=== PATIENT | female | born 1980 | race Caucasian/White ===

== ENCOUNTER 2018-04-09 20:41 | Observation (INO) | payer OTHER ==
[~2018-04-09 20:41] MED LIST: ISOVUE-370 76%-LOCM 1 ML ONE
--- NOTE | 2018-04-09 21:38 | RAD ---
PORTABLE CHEST: 04/09/18 HISTORY: Chest pain. The lung joseph appear clear. No infiltrate. Heart and mediastinum unremarkable. Postop sternotomy ch anges. Radiopaque suture overlies the right upper lung. IMPRESSION: No evidence of acute lung process. POS: [facility]
[2018-04-09 21:46] LABS: #Basophils 0.1 thou/uL (0.0-0.2); #Eosinphils 0.1 thou/uL (0.0-0.7); #Lymphocytes 1.8 thou/uL (1.20-3.40); #Monocytes 0.9 thou/uL (0.11-0.59); #Neutrophils 6.3 thou/uL (1.40-6.50); %Basophils 0.6 % (0.0-1.0); %Eosinophils 1.6 % (0.0-10.0); %Lymphocytes 19.8 % (21.0-51.0); %Monocytes 9.4 % (0.0-10.0); %Neutrophils 68.6 % (42.0-75.0); Hemoglobin 13.6 g/dL (12.0-16.0); Mean Corpuscular HGB CONC 34.8 g/dL (32.0-36.0); Mean Corpuscular Hemoglobin 28.6 pg (27.0-31.0); Mean Corpuscular Volume 82.1 fL (78.0-98.0); Mean Platelet Volume 6.7 fL (7.4-10.4); Platelet Count 301 thou/uL (130-400); RBC Distribution Width 14.2 % (11.5-14.5); Red Blood Cell (RBC) Count 4.74 mill/uL (4.20-5.40); White Blood Cell (WBC) Count 9.2 thou/uL (4.8-10.8)
[2018-04-09 21:51] LABS: Bilirubin Negative (Negative); Blood, Urine Negative (Negative); Clarity CLEAR (Clear); Glucose, Urine (Dipstick) Negative (Negative); Leukocyte Trace (Negative); Nitrite Negative (Negative); Protein, Urine (Dipstick) Negative (Neg-Trace); Specific Gravity, Urine 1.011 (1.002-1.036); Urobilinogen 0.2 mg/dL (0.2-1.0); pH, Urine 7.5 (5.0-9.0)
[2018-04-09 21:52] LABS: Bacteria/HPF None Seen HPF (None Seen); Hyaline Casts/LPF 0-3 HYALINE CAST LPF (0-3 Hyaline); Pathc Cast-AUWi Flag 0.14 (0-2.49); RBC/HPF 0-3 HPF (0-3); Squamous Epithelial 0-3 HPF (0-3); WBC/HPF 0-3 HPF (0-3)
[2018-04-09 22:07] LABS: ALT (SGPT) 12 U/L (8-55); AST (SGOT) 10 U/L (5-34); Albumin 4.5 g/dL (3.5-5.0); Alkaline Phosphatase 79 U/L (40-150); Anion Gap 13 mmol/L (10-20); BUN (Urea Nitrogen) 11 mg/dL (7.0-18.7); Bilirubin, Total 0.3 mg/dL (0.2-1.2); CK (CPK) 77 U/L (29-168); Calc. Creatinine Clearance 0 mL/min (70-130); Calcium 9.2 mg/dL (7.8-10.44); Carbon Dioxide 21 mmol/L (22-29); Chloride 107 mmol/L (98-107); Estimated GFR-MDRD 70; Globulin 3.2 g/dL (2.4-3.5); Glucose 95 mg/dL (70-105); Potassium 3.8 mmol/L (3.5-5.1); Protein, Total 7.7 g/dL (6.0-8.3); Sodium 137 mmol/L (136-145)
[2018-04-09] MEDS ORDERED: Acetaminophen 500 MG TAB ONE (22:07)
--- NOTE | 2018-04-09 22:08 | CT ---
CT HEAD WITHOUT CONTRAST: 04/09/18 Multiple axial tomograms obtained through the head without IV enhancement. INDICATIONS: Headache. Ventricles have normal size and position. No evidence of intracranial mass, hemorrhage or infarct. Si nuses and mastoids are aerated. IMPRESSION: No acute process. POS: [facility]
[2018-04-09 22:09] LABS: CKMB 0.6 ng/mL (0-6.6)
[2018-04-09] MEDS ORDERED: Ondansetron HCl/PF 4 MG/2 ML Vial ONE (22:16)
[2018-04-09 22:17] LABS: Troponin I Less than 0.010 ng/mL (< 0.028)
[2018-04-09] MEDS ORDERED: diphenhydrAMINE 50 MG/ML VIAL ONE (22:50)
[2018-04-09] MEDS ORDERED: Metoclopramide HCl 10 MG/2 ML VIAL ONE (22:50)
[2018-04-09] MEDS ORDERED: Ketorolac Tromethamine 30 MG/ML VIAL ONE (22:50)
[2018-04-09 23:28] LABS: Pregnancy Test - Urine (BHCG) Negative (Negative); Pregu Control Background? CLEAR/WHITE (CLR/WHITE); Pregu Control Bar Appear? YES (CONTROL BAR); Specific Gravity 1.011 (1.002-1.036)
--- NOTE | 2018-04-09 23:55 | CT ---
CT ANGIO HEAD: 04/09/18 Multiple axial tomograms obtained through the head with IV enhancement following a cerebral angio pro tocol with multiplanar reconstruction and 3D postprocessing. INDICATIONS: Left side weakness. FINDINGS: The intracranial internal carotid arteries are patent and symmetric. Middle cerebral arteries appear patent and symmetric. Anterior cerebral arteries appear unremarkable. Basilar artery is patent. The p osterior cerebral arteries appear symmetric. No evidence of aneurysm. No evidence of stenosis or occl usion. IMPRESSION: Unremarkable CT angio of cerebral circulation. CT ANGIO NECK: Multiple axial tomograms obtained through the neck following angio protocol with multiplanar reconstr uction. INDICATIONS: Left side weakness. No evidence of stenosis at the origin of the arch vessels. Both common carotid arteries are unremarka ble. Carotid bifurcations are unremarkable bilaterally. There is no stenosis or atherosclerotic change. Th e extracranial internal carotid arteries are unremarkable with no stenosis. No evidence of dissection . Vertebral arteries are patent and unremarkable. No soft tissue abnormality identified. IMPRESSION: Unremarkable CT angio of neck. POS: [facility]
[2018-04-10] MEDS ORDERED: Ondansetron HCl/PF 4 MG/2 ML Vial ONE (03:15)
[2018-04-10 04:54] LABS: Troponin I Less than 0.010 ng/mL (< 0.028)
[2018-04-10 06:51] VITALS: BMI 39.3
[2018-04-10] MEDS ORDERED: hydrALAZINE 20 MG/ML VIAL SLOW IVP PRN (08:50)
[2018-04-10] MEDS ORDERED: Enalaprilat Dihydrate 1.25 MG/ML VIAL SLOW IVP PRN (08:50)
[2018-04-10] MEDS ORDERED: Acetaminophen 325 MG TAB PO PRN (08:50)
[2018-04-10] MEDS ORDERED: Acetaminophen 650 MG Suppository PR PRN (08:50)
[2018-04-10] MEDS ORDERED: Bisacodyl 5 MG TAB PO PRN (08:50)
[2018-04-10] MEDS ORDERED: PROVENTIL INHALER 6.7 G (200 INHALATIONS) INH PRN (08:54)
[2018-04-10] MEDS ORDERED: Non-Formulary Item 1 EACH (Fluticasone/Salmeterol [Advair Diskus 250/50] 1 PUFF) INH SCH (09:00)
[2018-04-10 09:19] LABS: Amphetamine Not Detected (NotDetected); Barbiturates Screen Not Detected (NotDetected); Benzodiazepine Screen Not Detected (NotDetected); Cocaine Metabolite Screen Not Detected (NotDetected); Medtox Control Line Valid? VALID (VALID); Medtox Reader # READER 1; Methadone Not Detected (NotDetected); Methamphetamine Not Detected (NotDetected); Opiate Screen Not Detected (NotDetected); Oxycodone Screen Not Detected (NotDetected); Phencyclidine (PCP) Not Detected (NotDetected); THC/Cannabinoid Screen Not Detected (NotDetected); Tricyclic Screen Not Detected (NotDetected)
--- NOTE | 2018-04-10 10:13 | MRI ---
MRI OF THE BRAIN WITHOUT CONTRAST: INDICATION: Left arm and left leg weakness with a history of migraine headaches. COMPARISON: CT of the brain dated 04/09/18. FINDINGS: No restricted diffusion is seen to suggest the presence of acute ischemia. Septum pellucidum and thi rd ventricle are midline. The skull and extracranial soft tissues are within normal limits. There a ppropriate flow voids within the major intracranial vessels. IMPRESSION: No acute intracranial abnormality. POS: [facility]
[2018-04-10] MEDS: Amlodipine 10 MG TAB PO SCH (10:55)
[2018-04-10] MEDS: Aspirin 325 mg Enteric Coated Tablet PO SCH (10:56)
[2018-04-10] MEDS: Enoxaparin Sodium 40 MG/0.4 ML SYRINGE SC SCH (10:56)
[2018-04-10] MEDS: Nicotine 14 MG PATCH TD SCH (10:57)
[2018-04-10] MEDS: Metoprolol Tartrate 25 MG TAB PO SCH ×2 (10:57→21:59)
--- NOTE | 2018-04-10 13:11 | HP ---
PRIMARY CARE PROVIDER: [facility] in [place]. CHIEF COMPLAINT: Weakness. HISTORY OF PRESENT ILLNESS: Ms. Holland is a pleasant 38-year-old lady who was seen at [facility] on 04/10/2018. She reports that she woke up around 5:00 a.m. for a job interview at 8:00 a.m. yesterday. She also r eports that the prior night she only slept for a couple of hours. She reports being deprived. She reports that she had a headache when she woke up yesterday. She reports chronic migraine headach es, but those are usually posterior, but this headache was anterior. She went to her job interview a nd returned home. She ate breakfast around 10:30 p.m. She started feeling dizzy. She reports that she has chronic vertigo and this was not different. She sat in a recliner chair and dozed off. She woke up around 6:15-6:30 p.m. yesterday evening. She reports that she woke up because of left-sided chest pain. She describes it as pleuritic, sharp, 10/10, accompanied by shortness of breath and naus ea, radiating down left arm. At the same time, she reports having left-sided weakness and numbness a nd inability to move her left upper and lower extremities. She therefore presented to the emergency room because of chest pain and left-sided weakness. REVIEW OF SYSTEMS: All other systems reviewed and found to be negative. PAST MEDICAL HISTORY: Vertigo, endometriosis, dyslipidemia, migraines, obstructive sleep apnea syndr ome treated with CPAP and thymoma. PAST SURGICAL HISTORY: Benign tumor removed from the right lung, thymectomy, appendectomy, cholecyst ectomy, carpal tunnel surgery, bilateral knee surgery, thyroidectomy, and tonsillectomy. PSYCHIATRIC HISTORY: PTSD. SOCIAL HISTORY: Patient denies alcohol use or recreational drug use. She smokes half a pack of ciga rettes a day, tells me that she is cutting down from 2-3 packs a day. FAMILY HISTORY: No family history of premature coronary artery disease. ALLERGIES: PREDNISONE. HOME MEDICATIONS: ProAir HFA 2 puffs inhalation every 6 hours as needed, Norvasc 10 mg daily, Advair 1 puff 2 times a day and metoprolol tartrate 25 mg 2 times a day. PHYSICAL EXAMINATION: GENERAL: On examination, Ms. Holland is awake and alert, not in acute distress. She is obese, with a BMI of 39.3. VITAL SIGNS: Blood pressure is 123/72, pulse 84, respiratory rate 20, and she is saturating 95% on r oom air. She is afebrile. EYES: No scleral icterus. No conjunctival pallor. ENT: Moist mucosal membranes, no oropharyngeal erythema or exudates. NECK: Supple, nontender, normal range of movement. Trachea is midline. RESPIRATORY: Accessory muscles of breathing are not active. Chest wall movements are symmetric bila terally. LUNGS: Clear to auscultation without wheeze, rhonchi or crepitations. CARDIOVASCULAR: S1 and S2 are heard, regular. Peripheral pulses palpable. No carotid bruit, no per icardial rub. ABDOMEN: Soft, nontender, bowel sounds are heard, no hepatomegaly, no splenomegaly. NEUROLOGIC: Cranial nerves II-XII are intact. Power is 3/5 in the left upper and left lower extremi ties, 5/5 in the right upper and lower extremities. Sensation diminished over the left side of the b jennifer. Deep tendon reflexes 2+ and plantar is downgoing bilaterally. Please note that neurologic exam ination was not consistent in terms of the weakness in the left upper and lower extremities. MUSCULOSKELETAL: Power in the 4 extremities as described above. SKIN: No rashes or subcutaneous nodules. LYMPHATIC: No cervical lymphadenopathy. PSYCHIATRIC: Normal mood, normal affect. Patient is oriented to person, place, and time. IMAGING DATA AND LABORATORY DATA: Ms. Holland's labs and investigations were reviewed. I reviewed her electrocardiogram, which shows normal sinus rhythm, no ST changes to suggest an acute coronary sy ndrome. I also reviewed her chest x-ray, which does not show any pulmonary infiltrates. She had a n oncontrast CT scan of the brain, which was normal. She also had CT angiogram of [facility] [place] as well as the neck, which was unremarkable. She has an unremarkable CBC, D-dimer less than 0.27, unrem arkable comprehensive metabolic profile, troponin I that is negative x2 and urinalysis positive for t race leukocyte esterase. ASSESSMENT AND PLAN: Ms. Holland is a pleasant 38-year-old lady who was seen at [facility] on 04/10/2018. Her problem list includes: 1. Weakness: She is presenting with left-sided weakness. She will be admitted to the hospital for stroke workup. Neurology Service will be consulted for help with further management. She will be st arted on aspirin and statin. The differential diagnosis includes ischemic CVA at this time. 2. Chest pain: This has improved. We will trend her troponins. Pulmonary embolism has been ruled out with a negative D-dimer. 3. Obstructive sleep apnea syndrome: Patient to use CPAP while asleep during this hospitalization. It appears she has been sleep deprived and also reports that she did not use her CPAP last couple of nights. 4. Hypertension: Resume home medications, monitor vital signs and titrate antihypertensives as need ed. 5. Tobacco abuse: Patient has been counseled regarding tobacco cessation, we will start patient on nicotine replacement therapy. Many thanks for allowing me to participate in your patient's care. Please feel free to contact me wi th any questions or concerns. LEVEL OF RISK: High. LEVEL OF COMPLEXITY: High.
[2018-04-10] MEDS: Fioricet 325/50/40 mg Tablet PO PRN ×2 (15:32→22:02)
[2018-04-10 16:10] LABS: Troponin I Less than 0.010 ng/mL (< 0.028)
--- NOTE | 2018-04-10 16:14 | CON ---
DATE OF CONSULTATION: 04/10/2018 CHIEF COMPLAINT: Left-sided weakness. HISTORY OF PRESENT ILLNESS: The patient reports she has been having headaches and her headaches are usually on top of the head and back of the neck. She does have history of neck pain on and off as we ll. She went to bed in the early hours of the morning. She was going to get up and go to the interv iew yesterday, but then she woke up with a headache and she went to her job interview, came back home , and then she started to feel dizzy and she has history of vertigo as well and then she had left-alfredo ed chest pain along with left upper and lower extremity weakness. She comes to the ER. At this time , she is still weak and previous medical history is positive for vertigo, endometriosis, migraine hea daches. She has been off of Topamax for 4 months and was told by her primary care doctor that she wi ll only resume it when she goes to visit her. She has obstructive sleep apnea and is on CPAP. She a lso has thymoma. She has PTSD. PAST SURGICAL HISTORY: She had a thymectomy on the left side and she has right lung benign tumor rem oval, cholecystectomy, carpal tunnel surgery, knee surgery, thyroidectomy, and tonsillectomy. SOCIAL HISTORY: Lives with her family, smokes half a pack of cigarettes per day. No alcohol or drug use. FAMILY HISTORY: No strokes in her family. ALLERGIES: She is allergic to PREDNISONE. MEDICATIONS AT HOME: She has been off of Topamax for a few months. She is on inhalers, Norvasc, Adv air and metoprolol. REVIEW OF SYSTEMS: PULMONARY: Positive for shortness of breath. CARDIAC: Positive for chest pain. GASTROINTESTINAL: Negative for any diarrhea or constipation. HEMATOLOGIC: Normal. DERMATOLOGIC: Normal. NEUROLOGIC: Positive for weakness of her left side and also headache. HEMATOLOGICAL: No rmal. LABORATORY DATA: White count 9.2, hemoglobin 13.6, hematocrit 38.9, platelets 301. D-dimer less charmaine n 0.27. Chemistry; sodium 137, potassium 3.8, chloride 107, bicarbonate 21, BUN 11, creatinine 0.89, AST 10, ALT 12, alkaline phosphatase 79 and her urinalysis negative for any acute issues. Urine tox screen is negative and her MRI of the brain which was performed today showed no acute intracranial a bnormality. CT angiography also was performed yesterday and it was negative for any occlusive diseas e in the neck or intracerebral circulation. PHYSICAL EXAMINATION: VITAL SIGNS: Blood pressure 122/77, temperature 97.8, pulse 71, respiratory rate 16, O2 sats 98. GENERAL APPEARANCE: Well-built, well-nourished lady who seems to be comfortable. She is slightly ov erweight and at baseline she has internal rotation of her left ankle, which she corrects using her ri ght foot and makes her left ankle straight. CHEST: Clear vesicular breathing. CARDIOVASCULAR: S1, S2 heard, no murmurs. Carotids are clear. ABDOMEN: Soft, nontender, no organomegaly noted. NEUROLOGICAL: Higher intellectual function is normal. Cranial nerves II-XII normal. With a normal fundus exam, pupils are reactive to light. Extraocular movements are normal. Tongue midline, no atr ophy noted and normal hearing to finger rub bilaterally. Motor examination: Bulk normal, tone maribel l, strength 5/5 in upper and lower extremities on the right side at the iliopsoas, hamstrings, gricel ceps, ankle dorsiflexion and plantarflexion. Left upper and lower extremities; she does not move the m and she seems to be significantly weak with 0/5 strength and there is some nonorganic component to her weakness. Cerebellar: Normal [id number] on the right side. SENSORY: Normal sensation to p inprick, proprioception, vibration on the right side. She said the left side she could only feel pre ssure. IMPRESSION: Patient is a 38-year-old lady with migraine headaches and she has negative MRI, negative CT angiogram and she has significant weakness of the left arm and leg, but no facial involvement. S uspect whether this is a complicated migraine. Therefore, she has persistent weakness. There are so me atypical features to her weakness, but I would like to rule out possible cervical spine disease as well. RECOMMENDATIONS: Please perform MRI of the C-spine with and without contrast and call Neurology for additional help if needed. Hopefully, she will improve with her weakness if it is from migraine by t omorrow.
[2018-04-10] MEDS: Mometasone/Formoterol 120 PUFF INHALER INH SCH (19:25)
[2018-04-10] MEDS ORDERED: Atorvastatin Calcium 10 MG TAB PO SCH (21:00)
[2018-04-10 22:24] LABS: Troponin I Less than 0.010 ng/mL (< 0.028)
[2018-04-11 05:31] LABS: #Eosinphils 0.3 thou/uL (0.0-0.7); #Lymphocytes 1.7 thou/uL (1.20-3.40); #Monocytes 0.8 thou/uL (0.11-0.59); #Neutrophils 5.5 thou/uL (1.40-6.50); %Basophils 0.4 % (0.0-1.0); %Eosinophils 4.1 % (0.0-10.0); %Lymphocytes 19.7 % (21.0-51.0); %Monocytes 9.9 % (0.0-10.0); %Neutrophils 65.9 % (42.0-75.0); Hemoglobin 13.1 g/dL (12.0-16.0); Mean Corpuscular HGB CONC 33.6 g/dL (32.0-36.0); Mean Corpuscular Hemoglobin 27.6 pg (27.0-31.0); Mean Corpuscular Volume 82.2 fL (78.0-98.0); Mean Platelet Volume 6.8 fL (7.4-10.4); Platelet Count 290 thou/uL (130-400); RBC Distribution Width 14.3 % (11.5-14.5); Red Blood Cell (RBC) Count 4.74 mill/uL (4.20-5.40); White Blood Cell (WBC) Count 8.4 thou/uL (4.8-10.8)
[2018-04-11 05:46] LABS: Anion Gap 13 mmol/L (10-20); BUN (Urea Nitrogen) 12 mg/dL (7.0-18.7); Calc. Creatinine Clearance 129 mL/min (70-130); Calcium 8.7 mg/dL (7.8-10.44); Carbon Dioxide 20 mmol/L (22-29); Cardiac Risk 4.7 (Less than 4.5); Chloride 107 mmol/L (98-107); Cholesterol 198 mg/dl (< 200 Desired); Estimated GFR-MDRD 68; Glucose 81 mg/dL (70-105); HDL Cholesterol 42 mg/dL (>60 Neg Risk); LDL Cholesterol, Calculated 127 mg/dL; Potassium 4.1 mmol/L (3.5-5.1); Sodium 136 mmol/L (136-145); Triglycerides 145 mg/dL (Less than 150)
[2018-04-11] MEDS: Mometasone/Formoterol 120 PUFF INHALER INH SCH (06:22)
[2018-04-11] MEDS: Amlodipine 10 MG TAB PO SCH (07:47)
[2018-04-11] MEDS: Aspirin 325 mg Enteric Coated Tablet PO SCH (07:47)
[2018-04-11] MEDS: Metoprolol Tartrate 25 MG TAB PO SCH (07:47)
[2018-04-11] MEDS: Enoxaparin Sodium 40 MG/0.4 ML SYRINGE SC SCH (07:48)
[2018-04-11] MEDS: Nicotine 14 MG PATCH TD SCH (07:51)
[2018-04-11] MEDS: Fioricet 325/50/40 mg Tablet PO PRN (07:52)
[2018-04-11] MEDS ORDERED: Ketorolac Tromethamine 30 MG/ML VIAL IVP PRN (07:55)
--- NOTE | 2018-04-11 07:58 | PDOC.PN ---
- Subjective Encounter Start Date: 04/11/18 Encounter Start Time: 07:57 Subjective: pleuritic left sided chest pain persists. weakness on left persists - Objective MAR Reviewed: Yes Vital Signs & Weight: Vital Signs (12 hours) Temp Pulse Resp BP BP Pulse Ox 04/11/18 07:53 98.3 F 68 16 106/66 99 04/11/18 07:47 67 147/108 H 04/11/18 06:22 79 16 99 04/11/18 03:31 98.2 F 67 20 118/73 99 04/11/18 00:00 98.3 F 91 20 95 04/10/18 23:17 98.3 F 91 20 114/83 95 04/10/18 22:02 97.4 F L 75 20 04/10/18 20:00 97.4 F L 75 20 117/81 93 L Weight Weight 222 lb 2 oz I&O: 04/10/18 04/11/18 04/12/18 06:59 06:59 06:59 Intake Total 662 Balance 662 Result Diagrams: 04/11/18 04:57 04/11/18 04:57 Radiology Reviewed by me: Yes (MRI brain, no mass, cva, etc) Phys Exam - Physical Examination Neck: no JVD Respiratory: clear to auscultation bilateral Cardiovascular: RRR, no significant murmur Gastrointestinal: soft, non-tender, positive bowel sounds Musculoskeletal: no edema, pulses present cn 2-12 I, 1/5 strength L arm/leg Dx/Plan (1) Weakness of left side of body Code(s): R53.1 - WEAKNESS Status: Acute Comment: left sided, no apparent etiology (2) Pleuritic chest pain Code(s): R07.81 - PLEURODYNIA Status: Acute Comment: no evidence for CSD (3) HTN (hypertension) Code(s): I10 - ESSENTIAL (PRIMARY) HYPERTENSION Status: Chronic Qualifiers: Hypertension type: essential hypertension Qualified Code(s): I10 - Essential (primary) hypertension (4) Migraine headache Code(s): G43.909 - MIGRAINE, UNSP, NOT INTRACTABLE, WITHOUT STATUS MIGRAINOSUS Status: Acute - Plan DC morphine, start toradol iv -: MRI c-spine * .
[2018-04-11 11:46] VITALS: TEMP 97.8
[2018-04-11 13:47] VITALS: BP 134/81
--- NOTE | 2018-04-11 13:57 | DIS ---
DATE OF ADMISSION: 04/10/2018 DATE OF DISCHARGE: 04/11/2018 DISCHARGE DISPOSITION: Discharged home. FINAL DIAGNOSES: Pleuritic chest pain, migraine headaches, obstructive sleep apnea, dyslipidemia, to bacco abuse, post-traumatic stress disorder. DISCHARGE MEDICATIONS: The same as her old medicines. Advair Diskus 250/50 one puff twice a day, Du oNeb q.6 hours p.r.n., metoprolol 25 mg twice a day, amlodipine 10 mg a day, albuterol, ProAir 2 puff s q.6 hours p.r.n. ALLERGIES: Allergic to PREDNISONE. CODE STATUS: FULL. DIET: Heart healthy. PENDING AT THE TIME OF DISCHARGE: Nothing. HOSPITAL COURSE: The patient admitted with complaints of headache, dizziness, left-sided chest pain, left-sided weakness and numbness, and inability to move her left upper and lower extremity. Her mandi rological exam reveals some weakness, 3/5 in the left side. Her initial CT, no acute process. CT an giography unremarkable. MRI of the brain was done, no acute intracranial abnormality. Echocardiogra m was done, essentially normal. LABORATORY DATA: CBC normal x2. D-dimer less than 0.27. Comp metabolic profile normal except for a CO2 of 21. Cardiac enzymes normal x4. Cholesterol numbers: cholesterol 198, LDL 127, HDL 42. Uri ne was clear. Toxicology screen was negative. I did a neurological exam earlier today in which she had no motion in her left leg whatsoever and min imal in her right arm. I came back later to see her today. I had considered an MRI of the neck to r ule out a process there and this had not been able to be done secondary to some breathing disorder, a nd I came back to reexamine her. She was sitting on a bedside commode without any difficulty whatsoe jose. Her daughter helped her back to bed. She was able to use her left leg for support, as she move d back to the bed. I then proceeded to do a repeat neurological exam. She stated she had no sensati on in her left lower extremity. She was unable to move her left leg at all. Her deep tendon reflexe s were symmetric. Toes were downgoing. When requested to move her arm, she barely wiggled her finge rs. I lifted her arm, put her forearm above her face, let go and she let it down by her side. I hav e advised the patient that I consider that she is not weak that her problem is either psychiatric or malingering and no further workup will be done. She is being discharged to follow up with her PCP in [place].
== END 2018-04-11 14:22 | disposition home or self-care (01) ==
LOC: ERS 20:41 → 2SE 04-10 04:00
PROVIDERS: ADMIT Hospitalist; ATTEND Hospitalist
DX: R53.1 Weakness (principal); R07.81 Pleurodynia; G47.33 Obstructive sleep apnea (adult) (pediatric); F43.10 Post-traumatic stress disorder, unspecified; F17.210 Nicotine dependence, cigarettes, uncomplicated; I10 Essential (primary) hypertension; G43.909 Migraine, unspecified, not intractable, without status migrainosus; Z79.899 Other long term (current) drug therapy; Z88.8 Allergy status to other drugs, medicaments and biological substances; Z99.89 Dependence on other enabling machines and devices
CPT/HCPCS: 36415; 70450; 70496; 70498; 70551; 71045; 80048; 80053; 80061; 80306; 81003; 81015; 81025; 82550; 82553; 84484; 85025; 85379; 93005; 93306; 96365; 96372; 96375; 96376; G0378; G8978-GP-CJ; G8979-GP-CI; G8987-GO-CK; G8988-GO-CI; G9162-GN-CH; G9163-GN-CH; J1200; J1650; J1885; J2270; J2405; J2765